=== PATIENT | male | born 1980 | race Caucasian/White ===

== ENCOUNTER → 2016-10-19 | Outpatient (CLI) | payer OTHER ==
--- NOTE | 2016-10-19 12:08 | XR ---
Abdomen HISTORY: Left sided kidney stone Single frontal view of the abdomen correlated to prior dated 10 April 2016 Punctate calcification superimposed over the lower pole of the right kidney is again noted. Superimpo sed bowel gas may obscure detail. Vascular and prostate calcifications present within the pelvis. No bowel obstruction or pneumoperitoneum. Lung bases are not included on the exam. IMPRESSION: Right-sided nephrolithiasis, 3 mm calcification is again noted.
== END ==
LOC: RADXRMAIN 08:38
PROVIDERS: ATTEND Urology
DX: N20.0 Calculus of kidney (principal)
CPT/HCPCS: 74000

== ENCOUNTER 2020-07-19 10:46 | Emergency (ER) | payer OTHER ==
[2020-07-19 10:53] VITALS: RESP 18
[2020-07-19] MEDS ORDERED: SODIUM CHLORIDE 0.9% 1,000 ML IV STA ×2 (11:01)
[2020-07-19] MEDS ORDERED: MORPHINE SULFATE 4 MG/ML SYRINGE IV STA (11:01)
[2020-07-19] MEDS ORDERED: ONDANSETRON 4 MG/2 ML VIAL IVP STA (11:01)
--- NOTE | 2020-07-19 11:12 | ED ---
Abdominal Pain HPI - General Chief Complaint: Abdominal Pain Stated Complaint: Diverticulitis Time Seen by Provider: 07/19/20 10:56 Source: patient Mode of arrival: ambulatory Limitations: no limitations - History of Present Illness Initial Comments: 40-year-old male presenting today for chief complaint of LLQ pain, blood in stools, nausea. Pt states he has struggled with diverticulitis for quite some times now, he states the symptoms he has been experiencing this AM. Patient states he also has internal hemorrhoids and he states after a few loose stools the last one having blood in it. Patient denies fevers, vomiting, chest pain SOB. Denies history of chrons, or history of ulcerative colitis. Lady lightheaded sensation or additional complaints. pt appears well nontoxic in no acute distress. - Related Data Home Medications Medication Instructions Recorded Confirmed Calcium Carbonate [Calcium] 600 mg PO BID 07/19/20 07/19/20 Inulin/Chromium Picolinate [Fiber 1 tab PO DAILY 07/19/20 07/19/20 Gummies Chew] Multivitamins, Thera [Multivitamin 1 tab PO DAILY 07/19/20 07/19/20 (formulary)] Potassium Gluconate 99 mg PO DAILY 07/19/20 07/19/20 Previous Rx's Medication Instructions Recorded Amoxic-Pot Clav 875-125Mg 1 tab PO Q12HR 7 Days #14 tab 07/19/20 [Augmentin 875-125] Allergies Allergy/AdvReac Type Severity Reaction Status Date / Time No Known Allergies Allergy Verified 07/19/20 11:33 Review of Systems ROS Statement: Those systems with pertinent positive or pertinent negative responses have been documented in the HPI. ROS Other: All systems not noted in ROS Statement are negative. Past Medical History Additional Past Medical History / Comment(s): back pain, kidney stones, internal hemorrhoids History of Any Multi-Drug Resistant Organisms: MRSA Date of last positivie culture/infection: 2017 MDRO Source:: arm Additional Past Surgical History / Comment(s): lithrotripsy Past Psychological History: No Psychological Hx Reported Smoking Status: Never smoker Past Alcohol Use History: None Reported Past Drug Use History: Marijuana General Exam - General Exam Comments Initial Comments: General: The patient is awake and alert, in no distress Eye: Pupils are equal, round and reactive to light, extra-ocular movements are intact. No nystagmus. There is normal conjunctiva bilaterally. No signs of icterus. Cardiovascular: There is a regular rate and rhythm. No murmur, rub or gallop is appreciated. Respiratory: Lungs are clear to auscultation, respirations are non-labored, breath sounds are equal. No wheezes, stridor, rales, or rhonchi. Gastrointestinal: Soft, non-distended, LLQ tenderness no appreciated hernia/emy tral defects on inspection, abdomen without masses or organomegaly noted. There is no rebound or guarding present. Musculoskeletal: Normal ROM, no tenderness. Strength 5/5. Sensation intact. Radial pulses equal bilaterally 2+. Neurological: A&O x 3. CN II-XII intact grossly, There are no obvious motor or sensory deficits. Coordination appears grossly intact. Speech is normal. Skin: Skin is warm and dry and no rashes or lesions are noted. Psychiatric: Cooperative, appropriate mood & affect, normal judgment. Limitations: no limitations Course Vital Signs 07/19/20 10:51 Temperature 98.7 F Pulse Rate 82 Respiratory 18 Rate Blood Pressure 146/90 O2 Sat by Pulse 100 Oximetry Medical Decision Making - Medical Decision Making 40yo male presenting to the Er today for cc of LLQ pain, hx of diverticulitis. Patient CT reveals colitis. pt states he has had no additional BM with stool. patient labs no critical findings. VS stable. appearse nontoxic. pt will be discharged on oral antibiotics with recommended GI or general surgery follow-up for colonoscopy. pcp f/u in 2 days discussed complications of reticulitis/colitis including perforation and the importance of return primary patient discharged appearing well. attending agreeable to care plan. and d/c - Lab Data Result diagrams: 07/19/20 11:21 07/19/20 11:21 Lab Results 07/19/20 07/19/20 07/19/20 Range/Units 11:21 11:21 11:21 WBC 7.8 (3.8-10.6) k/uL RBC 5.01 (4.30-5.90) m/uL Hgb 16.3 (13.0-17.5) gm/dL Hct 48.3 (39.0-53.0) % MCV 96.6 (80.0-100.0) fL MCH 32.5 (25.0-35.0) pg MCHC 33.6 (31.0-37.0) g/dL RDW 12.6 (11.5-15.5) % Plt Count 298 (150-450) k/uL MPV 8.0 Neutrophils % 78 % Lymphocytes % 16 % Monocytes % 3 % Eosinophils % 1 % Basophils % 0 % Neutrophils # 6.1 (1.3-7.7) k/uL Lymphocytes # 1.2 (1.0-4.8) k/uL Monocytes # 0.3 (0-1.0) k/uL Eosinophils # 0.1 (0-0.7) k/uL Basophils # 0.0 (0-0.2) k/uL Sodium 138 (137-145) mmol/L Potassium 4.6 (3.5-5.1) mmol/L Chloride 109 H (98-107) mmol/L Carbon Dioxide 21 L (22-30) mmol/L Anion Gap 8 mmol/L BUN 11 (9-20) mg/dL Creatinine 0.89 (0.66-1.25) mg/dL Est GFR (CKD-EPI)AfAm >90 (>60 ml/min/1.73 sqM) Est GFR (CKD-EPI)NonAf >90 (>60 ml/min/1.73 sqM) Glucose 138 H (74-99) mg/dL Calcium 9.9 (8.4-10.2) mg/dL Total Bilirubin 0.5 (0.2-1.3) mg/dL AST 33 (17-59) U/L ALT 36 (4-49) U/L Alkaline Phosphatase 75 (38-126) U/L Total Protein 8.0 (6.3-8.2) g/dL Albumin 4.8 (3.5-5.0) g/dL Amylase 67 (30-110) U/L Lipase 217 (23-300) U/L Urine Color Light Yellow Urine Appearance Clear (Clear) Urine pH 6.5 (5.0-8.0) Ur Specific [place] 1.014 (1.001-1.035) Urine Protein Trace H (Negative) Urine Glucose (UA) Negative (Negative) Urine Ketones Negative (Negative) Urine Blood Small H (Negative) Urine Nitrite Negative (Negative) Urine Bilirubin Negative (Negative) Urine Urobilinogen <2.0 (<2.0) mg/dL Ur Leukocyte Esterase Small H (Negative) Urine RBC 10 H (0-5) /hpf Urine WBC 3 (0-5) /hpf Urine Mucus Rare H (None) /hpf Disposition Clinical Impression: Colitis, Blood in stool, Abdominal pain Disposition: HOME SELF-CARE Condition: Good Instructions (If sedation given, give patient instructions): Diverticulitis (ED), Colitis (ED) Additional Instructions: Please use medication as discussed. Please follow-up with family doctor in the next 2 day and gastroenterology or general surgery for a colonoscopy. Please return to emergency room if the symptoms increase or worsen or for any other concerns. Prescriptions: Amoxic-Pot Clav 875-125Mg [Augmentin 875-125] 1 tab PO Q12HR 7 Days #14 tab Is patient prescribed a controlled substance at d/c from ED?: No Referrals: Nelly Ford DO [Primary Care Provider] - 1-2 days Loc Green MD [STAFF PHYSICIAN] - 1-2 days Time of Disposition: 12:46
[2020-07-19] MEDS ORDERED: PIPERACILLIN-TAZOBACTAM 3.375 GM in SODIUM CHLORIDE 0.9% 100 ML IVPB STA (11:17)
[2020-07-19 11:48] LABS: Basophils % (A) 0 %; Eosinophils # (A) 0.1 k/uL (0-0.7); Eosinophils % (A) 1 %; HCT 48.3 % (39.0-53.0); HGB 16.3 gm/dL (13.0-17.5); Lymphocytes # (A) 1.2 k/uL (1.0-4.8); Lymphocytes % (A) 16 %; MCH 32.5 pg (25.0-35.0); MCHC 33.6 g/dL (31.0-37.0); MCV 96.6 fL (80.0-100.0); Monocytes # (A) 0.3 k/uL (0-1.0); Monocytes % (A) 3 %; Neutrophils # (A) 6.1 k/uL (1.3-7.7); Neutrophils % (A) 78 %; Platelet Count 298 k/uL (150-450); RBC 5.01 m/uL (4.30-5.90); RDW 12.6 % (11.5-15.5); WBC 7.8 k/uL (3.8-10.6)
[2020-07-19 11:50] LABS: Appearance,Urine Clear (Clear); Bilirubin,Urine Negative (Negative); Blood,Urine Small (Negative); Color,Urine Light Yellow; Glucose,Urine (UA) Negative (Negative); Ketones,Urine Negative (Negative); Leukocyte Esterase,Urine Small (Negative); Mucus,Urine Rare /hpf; Nitrite,Urine Negative (Negative); PH, Urine 6.5 (5.0-8.0); Protein,Urine Trace (Negative); RBC,Urine 10 /hpf (0-5); Specific Gravity,Urine 1.014 (1.001-1.035); Urobilinogen,Urine <2.0 mg/dL (<2.0); WBC,Urine 3 /hpf (0-5)
[2020-07-19 11:54] LABS: ALT 36 U/L (4-49); AST 33 U/L (17-59); African American GFR (CKD) >90 (>60 ml/min/1.73 sqM); Albumin 4.8 g/dL (3.5-5.0); Alkaline Phosphatase 75 U/L (38-126); Amylase 67 U/L (30-110); Anion Gap 8 mmol/L; Blood Urea Nitrogen 11 mg/dL (9-20); Calcium 9.9 mg/dL (8.4-10.2); Carbon Dioxide 21 mmol/L (22-30); Chloride 109 mmol/L (98-107); Glucose 138 mg/dL (74-99); Lipase 217 U/L (23-300); Non-African American GFR(CKD) >90 (>60 ml/min/1.73 sqM); Potassium 4.6 mmol/L (3.5-5.1); Sodium 138 mmol/L (137-145); Total Bilirubin 0.5 mg/dL (0.2-1.3)
--- NOTE | 2020-07-19 12:39 | CT ---
EXAMINATION TYPE: CT abdomen pelvis w con DATE OF EXAM: 07/19/2020 COMPARISON: 09/17/2015 HISTORY: LLQ pain CT DLP: 1112.8 mGycm CONTRAST: CT scan of the abdomen and pelvis is performed without Oral Contrast and with IV Contrast, patient in jected with 100 mL of Isovue 300. FINDINGS: LUNG BASES-: No visible nodule. No infiltrate. LIVER/GB: No calcified gallstones. No space occupying hepatic lesion. Biliary tree is of normal ca liber. PANCREAS: No inflammation. No distinct mass. SPLEEN: No splenic enlargement. No lesion seen. ADRENALS: No nodule. No thickening. KIDNEYS/BLADDER: No hydronephrosis. No nephrolithiasis. No distinct renal mass. Urinary bladder g rossly unremarkable. BOWEL: Normal appendix. Normal bowel caliber. Scattered diverticulosis descending colon and sigmoid colon. No definite evidence for diverticulitis. There is wall thickening of the descending colon whic h may reflect colitis. Correlate clinically. No free air or abscess seen. GENITAL ORGANS: No gross abnormality. LYMPH NODES: No greater than 1cm abdominal or pelvic lymph nodes are appreciated. AORTA: No significant abnormality. OSSEOUS STRUCTURES: No significant abnormality is seen. OTHER: No significant additional abnormality is seen. IMPRESSION: 1. No definite evidence for diverticulitis. There is wall thickening of the descending colon which ma y reflect colitis. Correlate clinically. No free air or abscess seen.
[2020-07-19 13:05] VITALS: BP 144/97; PULSE 65; TEMP 98.2
== END 2020-07-19 13:04 | disposition home or self-care (01) ==
LOC: EC 10:46
DX: K52.9 Noninfective gastroenteritis and colitis, unspecified (principal); Z87.19 Personal history of other diseases of the digestive system; Z87.442 Personal history of urinary calculi; Z98.890 Other specified postprocedural states; Z86.14 Personal history of Methicillin resistant Staphylococcus aureus infection
CPT/HCPCS: 96365; 96375 ×2; 99284; 36415; 80053; 82150; 83690; 85025; 81001; 74177; J2543; J2270; J2405; Q9967

== ENCOUNTER 2020-12-29 13:19 | Emergency (ER) | payer OTHER ==
[2020-12-29 13:24] VITALS: TEMP 98
[2020-12-29] MEDS ORDERED: OFLOXACIN 0.3% OPHTH DROPS 5 ML BOTTLE LEFT EYE STA (13:34)
[2020-12-29] MEDS ORDERED: PROPARACAINE 0.5% OPHTH DROPS 15 ML BTL LEFT EYE STA (13:34)
[2020-12-29] MEDS ORDERED: FLUORESCEIN STRIPS 1 MG STRIP LEFT EYE STA (13:35)
--- NOTE | 2020-12-29 14:39 | ED ---
General Adult HPI - General Chief complaint: Eye Problems Stated complaint: Dog scratch on eye Time Seen by Provider: 12/29/20 13:34 Source: patient, RN notes reviewed Mode of arrival: ambulatory Limitations: no limitations - History of Present Illness Initial comments: 80-year-old male presents to the emergency room for a chief complaint of right eye pain. Patient states early this morning he was sleeping and his dog scratched his eye. Patient states that he now has irritation to the right eye. States he waited to see if it would go away but it is not. Patient does wear contacts, does not currently have them in. He is up-to-date on tetanus. Patient denies visual changes but states he is legally blind without his contacts.Patient has no other complaints at this time including shortness of breath, chest pain, abdominal pain, nausea or vomiting, headache, or visual changes. - Related Data Home Medications Medication Instructions Recorded Confirmed Calcium Carbonate [Calcium] 600 mg PO BID 07/19/20 07/19/20 Inulin/Chromium Picolinate [Fiber 1 tab PO DAILY 07/19/20 07/19/20 Gummies Chew] Multivitamins, Thera [Multivitamin 1 tab PO DAILY 07/19/20 07/19/20 (formulary)] Potassium Gluconate 99 mg PO DAILY 07/19/20 07/19/20 Previous Rx's Medication Instructions Recorded Amoxic-Pot Clav 875-125Mg 1 tab PO Q12HR 7 Days #14 tab 07/19/20 [Augmentin 875-125] Ofloxacin 0.3% Ophth Soln [Ocuflox 2 drops BOTH EYES QID 7 Days #2 ml 12/29/20 Ophth Soln] Allergies Allergy/AdvReac Type Severity Reaction Status Date / Time No Known Allergies Allergy Verified 12/29/20 13:24 Review of Systems ROS Statement: Those systems with pertinent positive or pertinent negative responses have been documented in the HPI. ROS Other: All systems not noted in ROS Statement are negative. Past Medical History Additional Past Medical History / Comment(s): back pain, kidney stones, internal hemorrhoids History of Any Multi-Drug Resistant Organisms: MRSA Date of last positivie culture/infection: 2016 MDRO Source:: arm Additional Past Surgical History / Comment(s): lithrotripsy Past Psychological History: No Psychological Hx Reported Smoking Status: Never smoker Past Alcohol Use History: None Reported Past Drug Use History: Marijuana General Exam Limitations: no limitations General appearance: alert, in no apparent distress Head exam: Present: atraumatic, normocephalic, normal inspection Eye exam: Present: PERRL, EOMI, conjunctival injection (Right-sided conjunctival injection.). Absent: scleral icterus, periorbital swelling ENT exam: Present: normal exam, mucous membranes moist Neck exam: Present: normal inspection, full ROM. Absent: tenderness, meningismus, lymphadenopathy Respiratory exam: Present: normal lung sounds bilaterally. Absent: respiratory distress, wheezes, rales, rhonchi, stridor Cardiovascular Exam: Present: regular rate, normal rhythm, normal heart sounds Course Vital Signs 12/29/20 13:20 Temperature 98.0 F Pulse Rate 68 Respiratory 17 Rate Blood Pressure 143/86 O2 Sat by Pulse 98 Oximetry Medical Decision Making - Medical Decision Making Patient presents after dog scratched his right eye causing pain. The eye was numbed with proparacaine which did completely alleviate his pain. It was then visualized with 4 seen and Wood's lamp which did reveal a small corneal abrasion noted on the center of the cornea. Patient was treated with ofloxacin drops given history of contact use. He will follow up with ophthalmology. He will return here to the emergency room for any worsening symptoms. Disposition Clinical Impression: Corneal abrasion, right Disposition: HOME SELF-CARE Condition: Good Instructions (If sedation given, give patient instructions): Corneal Abrasion (ED) Additional Instructions: Please use antibiotics as directed. Do not wear contacts for several days. Follow up with ophthalmology. Return to the emergency room for any worsening symptoms. Prescriptions: Ofloxacin 0.3% Ophth Soln [Ocuflox Ophth Soln] 2 drops BOTH EYES QID 7 Days #2 ml Is patient prescribed a controlled substance at d/c from ED?: No Referrals: Nelly Ford DO [Primary Care Provider] - 1-2 days Ector Gordon MD [STAFF PHYSICIAN] - 1-2 days Time of Disposition: 14:35
[2020-12-29 14:55] VITALS: RESP 18
[2020-12-29 14:57] VITALS: BP 138/89; PULSE 65
== END 2020-12-29 15:05 | disposition home or self-care (01) ==
LOC: EC 13:19
DX: S05.01XA Injury of conjunctiva and corneal abrasion without foreign body, right eye, initial encounter (principal); F12.90 Cannabis use, unspecified, uncomplicated; Z87.442 Personal history of urinary calculi; Z87.19 Personal history of other diseases of the digestive system; W54.8XXA Other contact with dog, initial encounter
CPT/HCPCS: 99283

== ENCOUNTER 2021-09-07 10:47 | Emergency (ER) | payer OTHER ==
[2021-09-07 11:14] VITALS: RESP 18; TEMP 97.8
[2021-09-07] MEDS ORDERED: diphenhydrAMINE 50 MG/ML 1 ML VIAL IVP STA (11:17)
[2021-09-07] MEDS ORDERED: MORPHINE SULFATE 4 MG/ML SYRINGE IV STA (11:17)
[2021-09-07] MEDS ORDERED: ONDANSETRON 4 MG/2 ML VIAL IVP STA (11:17)
[2021-09-07] MEDS ORDERED: SODIUM CHLORIDE 0.9% 1,000 ML IV STA ×2 (11:17→12:15)
[2021-09-07] MEDS ORDERED: FAMOTIDINE 20 MG/2 ML VIAL IV STA (11:25)
[2021-09-07 11:42] LABS: Basophils % (A) 0 %; Eosinophils # (A) 0.1 k/uL (0-0.7); Eosinophils % (A) 1 %; HCT 46.2 % (39.0-53.0); HGB 15.9 gm/dL (13.0-17.5); Lymphocytes # (A) 1.1 k/uL (1.0-4.8); Lymphocytes % (A) 9 %; MCH 33.7 pg (25.0-35.0); MCHC 34.5 g/dL (31.0-37.0); MCV 97.6 fL (80.0-100.0); Mean Platelet Volume 7.8; Monocytes # (A) 0.4 k/uL (0-1.0); Monocytes % (A) 3 %; Neutrophils # (A) 10.9 k/uL (1.3-7.7); Neutrophils % (A) 86 %; Platelet Count 274 k/uL (150-450); RBC 4.73 m/uL (4.30-5.90); RDW 12.7 % (11.5-15.5); WBC 12.7 k/uL (3.8-10.6)
[2021-09-07 11:51] LABS: INR 1.1 (<1.2); Partial Thromboplastin Time 27.5 sec (22.0-30.0); Prothrombin Time 11.2 sec (9.0-12.0)
[2021-09-07 11:53] LABS: ALT 30 U/L (4-49); AST 29 U/L (17-59); African American GFR (CKD) >90 (>60 ml/min/1.73 sqM); Albumin 4.7 g/dL (3.5-5.0); Alkaline Phosphatase 87 U/L (38-126); Amylase 76 U/L (30-110); Anion Gap 8 mmol/L; Blood Urea Nitrogen 13 mg/dL (9-20); Calcium 9.9 mg/dL (8.4-10.2); Carbon Dioxide 24 mmol/L (22-30); Chloride 106 mmol/L (98-107); Glucose 145 mg/dL (74-99); Lipase 237 U/L (23-300); Non-African American GFR(CKD) 83 (>60 ml/min/1.73 sqM); Sodium 138 mmol/L (137-145); Total Bilirubin 0.8 mg/dL (0.2-1.3)
--- NOTE | 2021-09-07 12:06 | CT ---
EXAMINATION TYPE: CT abdomen pelvis w con DATE OF EXAM: 09/07/2021 COMPARISON: 07/19/2020 HISTORY: Left lower abdominal pain, suspect diverticulitis CT DLP: 1027 mGycm Automated exposure control for dose reduction was used. CONTRAST: CT scan of the abdomen pelvis is performed with IV Contrast, patient injected with 100 mL of Isovue 3 00. FINDINGS- LUNG BASES- No significant abnormality is appreciated. LIVER/GB-there is a enhancing hepatic dome lesion retrospectively stable from prior exam which demons trates complete fill in on delayed imaging and measures approximately 2.3 cm compatible with hemangio ma. Smaller right lobe hemangioma measuring 1 cm axial image 2017 also suspected.. PANCREAS- No gross abnormality is seen. SPLEEN- No gross abnormality is seen. ADRENALS- No gross abnormality is seen. KIDNEYS/BLADDER-punctate 2 mm nonobstructing right renal calculus.. BOWEL-bowel gas pattern nonspecific with changes of diverticulosis. There is mild induration of the f at involving the distal left: Correlate for mild diverticulitis. Appendix normal. LYMPH NODES- No greater than 1cm abdominal or pelvic lymph nodes areappreciated. OSSEOUS STRUCTURES-severe degenerative disc disease L5-S1. OTHER- aorta of normal caliber. Small fat-containing periumbilical hernia. IMPRESSION- 1. Extensive diverticulosis correlate for mild uncomplicated distal left colonic diverticulitis. 2. Nonobstructing punctate 1 to 2 mm calculus. 3. Hepatic lesions most of thecal hemangioma
[2021-09-07 12:24] LABS: Amorphous Sediment,Urine Rare /hpf; Appearance,Urine Cloudy (Clear); Bilirubin,Urine Negative (Negative); Blood,Urine Negative (Negative); Color,Urine Light Yellow; Glucose,Urine (UA) Negative (Negative); Ketones,Urine 1+ (Negative); Leukocyte Esterase,Urine Negative (Negative); Nitrite,Urine Negative (Negative); Protein,Urine Trace (Negative); RBC,Urine 4 /hpf (0-5); Urobilinogen,Urine <2.0 mg/dL (<2.0)
[2021-09-07 12:29] LABS: Specific Gravity,Urine 1.049 (1.001-1.035)
[2021-09-07] MEDS ORDERED: AMOXIC-POT CLAV 875-125MG 1 EACH TAB PO STA (12:47)
--- NOTE | 2021-09-07 12:50 | ED ---
General Adult HPI - General Chief complaint: Abdominal Pain Stated complaint: abd pain Time Seen by Provider: 09/07/21 11:15 Source: patient, RN notes reviewed, old records reviewed Mode of arrival: ambulatory Limitations: no limitations - History of Present Illness Initial comments: Patient is a 41-year-old male with past medical history remarkable for diverticulitis, diverticulosis, kidney stones who presents emergency department complaining of acute onset of left lower quadrant abdominal pain. Patient states that the abdominal pain started this morning when he awoke. Describes as a sharp, aching sensation isolated to the left lower quadrant. There is no acute vomiting. Denies diarrhea. Denies any chest pain, shortness of breath. Denies any urinary complaints but does endorse a history of kidney stones. Has no other acute complaint at this time. Presents emergency department over concern for his abdominal pain. Recently had a colonoscopy and hemorrhoids removed, was diagnosed with diverticulosis. - Related Data Home Medications Medication Instructions Recorded Confirmed Calcium Carbonate [Calcium] 600 mg PO BID 07/19/20 07/19/20 Inulin/Chromium Picolinate [Fiber 1 tab PO DAILY 07/19/20 07/19/20 Gummies Chew] Multivitamins, Thera [Multivitamin 1 tab PO DAILY 07/19/20 07/19/20 (formulary)] Potassium Gluconate [Potassium 99 mg PO DAILY 07/19/20 07/19/20 Gluconate ER] Previous Rx's Medication Instructions Recorded Amoxic-Pot Clav 875-125Mg 1 tab PO Q12HR 7 Days #14 tab 07/19/20 [Augmentin 875-125] Ofloxacin 0.3% Ophth Soln [Ocuflox 2 drops BOTH EYES QID 7 Days #2 ml 12/29/20 Ophth Soln] Amoxicillin/Potassium Clav 1 tab PO Q12HR 7 Days #14 tab 09/07/21 [Augmentin 875-125 Tablet] Docusate [Colace] 100 mg PO DAILY PRN 10 Days #10 09/07/21 capsule Allergies Allergy/AdvReac Type Severity Reaction Status Date / Time No Known Allergies Allergy Verified 09/07/21 11:14 Review of Systems ROS Statement: Those systems with pertinent positive or pertinent negative responses have been documented in the HPI. Review of Systems: CONST: Denies fever EYES: Denies blurry vision ENT: Denies nasal congestion C/V: Denies Chest pain RESP: Denies shortness of breath GI: Endorses abdominal pain. : Denies dysuria SKIN: Denies rash. MSK: Denies joint pain. NEURO: Denies headache ROS Other: All systems not noted in ROS Statement are negative. Past Medical History Additional Past Medical History / Comment(s): back pain, kidney stones, internal hemorrhoids History of Any Multi-Drug Resistant Organisms: MRSA Date of last positivie culture/infection: 2016 MDRO Source:: arm Additional Past Surgical History / Comment(s): lithrotripsy Past Psychological History: No Psychological Hx Reported Smoking Status: Former smoker Past Alcohol Use History: None Reported Past Drug Use History: Marijuana General Exam - General Exam Comments Initial Comments: General: Appears in mild distress secondary to abdominal pain. HEAD: Normal with no signs of head trauma. EYES: PERRLA, EOMI, conjunctiva normal, no discharge. ENT: Hearing grossly intact, normal oropharynx. RESPIRATORY: Clear breath sounds bilaterally. No wheezes, rales, or rhonchi. C/V: Regular rate and rhythm. S1 and S2 auscultated, no edema, peripheral pulses 2+ and intact throughout ABD: Abdomen is soft , nondistended. He is mildly tender to palpation left lower quadrant. There is no guarding. No peritoneal signs. No rebound tenderness. No CVA tenderness to percussion. EXT: Normal range of motion, no obvious deformity SKIN: No rashes or lesions observed on exposed skin. NEURO: Alert and oriented 4. Limitations: no limitations Course Vital Signs 09/07/21 11:10 Temperature 97.8 F Pulse Rate 71 Respiratory 18 Rate Blood Pressure 167/97 O2 Sat by Pulse 100 Oximetry Medical Decision Making - Medical Decision Making Based on the patient's presentation and physical exam, I'm concerned for acute intra-abdominal process for the patient, primarily concerned for kidney stones versus diverticulitis. He has a history of both. He will be given analgesia, 1 L fluid bolus, antiemetics and 1 L fluid bolus. We will obtain abdominal laboratory studies as well as CT and pelvis with contrast as well as a ultrasound to evaluate for hydronephrosis and kidney stones. Patient was in agreement this plan. Patient's left wrist studies are remarkable for lactic acid 2.8 which is likely secondary to dehydration. He will receive fluid bolus as well as here. Remainder the labs are unremarkable except for mild leukocytosis of 12.7. Urinalysis is unremarkable. CT imaging revealed extensive diverticulosis with mild uncomplicated left colonic diverticulitis. There is also a hemangioma. No other findings on CT imaging. There are small nonobstructing punctate 1-2 mm calculus. Ultrasound revealed no signs of acute hydronephrosis, but there is a small right nephrolithiasis.. I discussed the findings with the patient. He is feeling improved, and states that his pain is nearly resolved. He is no longer nauseous. I believe it is safe for him to be discharged home with antibiotics. He has uncomplicated diverticulitis. He was in agreement this plan. I will provide the patient with a prescription for stool softeners, Augmentin twice a day for 10 days. I instructed the patient to follow up with their PCP in the next 3 days. . I explained that the patient should return to the emergency department if they experience any worsening symptoms. Strict return precautions were discussed with the patient. The patient expressed understanding of these instructions. I answered all questions that the patient had. The patient was discharged home in fair condition with their prescriptions and follow up information. - Lab Data Result diagrams: 09/07/21 11:30 09/07/21 11:30 Lab Results 09/07/21 09/07/21 09/07/21 Range/Units 11:30 11:30 11:30 WBC 12.7 H (3.8-10.6) k/uL RBC 4.73 (4.30-5.90) m/uL Hgb 15.9 (13.0-17.5) gm/dL Hct 46.2 (39.0-53.0) % MCV 97.6 (80.0-100.0) fL MCH 33.7 (25.0-35.0) pg MCHC 34.5 (31.0-37.0) g/dL RDW 12.7 (11.5-15.5) % Plt Count 274 (150-450) k/uL MPV 7.8 Neutrophils % 86 % Lymphocytes % 9 % Monocytes % 3 % Eosinophils % 1 % Basophils % 0 % Neutrophils # 10.9 H (1.3-7.7) k/uL Lymphocytes # 1.1 (1.0-4.8) k/uL Monocytes # 0.4 (0-1.0) k/uL Eosinophils # 0.1 (0-0.7) k/uL Basophils # 0.0 (0-0.2) k/uL PT (9.0-12.0) sec INR (<1.2) APTT (22.0-30.0) sec Sodium 138 (137-145) mmol/L Potassium 4.0 (3.5-5.1) mmol/L Chloride 106 (98-107) mmol/L Carbon Dioxide 24 (22-30) mmol/L Anion Gap 8 mmol/L BUN 13 (9-20) mg/dL Creatinine 1.09 (0.66-1.25) mg/dL Est GFR (CKD-EPI)AfAm >90 (>60 ml/min/1.73 sqM) Est GFR (CKD-EPI)NonAf 83 (>60 ml/min/1.73 sqM) Glucose 145 H (74-99) mg/dL Plasma Lactic Acid Yang 2.8 H* (0.7-2.0) mmol/L Calcium 9.9 (8.4-10.2) mg/dL Total Bilirubin 0.8 (0.2-1.3) mg/dL AST 29 (17-59) U/L ALT 30 (4-49) U/L Alkaline Phosphatase 87 (38-126) U/L Total Protein 8.0 (6.3-8.2) g/dL Albumin 4.7 (3.5-5.0) g/dL Amylase 76 (30-110) U/L Lipase 237 (23-300) U/L Urine Color Urine Appearance (Clear) Urine pH (5.0-8.0) Ur Specific [place] (1.001-1.035) Urine Protein (Negative) Urine Glucose (UA) (Negative) Urine Ketones (Negative) Urine Blood (Negative) Urine Nitrite (Negative) Urine Bilirubin (Negative) Urine Urobilinogen (<2.0) mg/dL Ur Leukocyte Esterase (Negative) Urine RBC (0-5) /hpf Amorphous Sediment (None) /hpf 09/07/21 09/07/21 Range/Units 11:30 12:00 WBC (3.8-10.6) k/uL RBC (4.30-5.90) m/uL Hgb (13.0-17.5) gm/dL Hct (39.0-53.0) % MCV (80.0-100.0) fL MCH (25.0-35.0) pg MCHC (31.0-37.0) g/dL RDW (11.5-15.5) % Plt Count (150-450) k/uL MPV Neutrophils % % Lymphocytes % % Monocytes % % Eosinophils % % Basophils % % Neutrophils # (1.3-7.7) k/uL Lymphocytes # (1.0-4.8) k/uL Monocytes # (0-1.0) k/uL Eosinophils # (0-0.7) k/uL Basophils # (0-0.2) k/uL PT 11.2 (9.0-12.0) sec INR 1.1 (<1.2) APTT 27.5 (22.0-30.0) sec Sodium (137-145) mmol/L Potassium (3.5-5.1) mmol/L Chloride (98-107) mmol/L Carbon Dioxide (22-30) mmol/L Anion Gap mmol/L BUN (9-20) mg/dL Creatinine (0.66-1.25) mg/dL Est GFR (CKD-EPI)AfAm (>60 ml/min/1.73 sqM) Est GFR (CKD-EPI)NonAf (>60 ml/min/1.73 sqM) Glucose (74-99) mg/dL Plasma Lactic Acid Yang (0.7-2.0) mmol/L Calcium (8.4-10.2) mg/dL Total Bilirubin (0.2-1.3) mg/dL AST (17-59) U/L ALT (4-49) U/L Alkaline Phosphatase (38-126) U/L Total Protein (6.3-8.2) g/dL Albumin (3.5-5.0) g/dL Amylase (30-110) U/L Lipase (23-300) U/L Urine Color Light Yellow Urine Appearance Cloudy (Clear) Urine pH 8.0 (5.0-8.0) Ur Specific [place] 1.049 H (1.001-1.035) Urine Protein Trace H (Negative) Urine Glucose (UA) Negative (Negative) Urine Ketones 1+ H (Negative) Urine Blood Negative (Negative) Urine Nitrite Negative (Negative) Urine Bilirubin Negative (Negative) Urine Urobilinogen <2.0 (<2.0) mg/dL Ur Leukocyte Esterase Negative (Negative) Urine RBC 4 (0-5) /hpf Amorphous Sediment Rare H (None) /hpf Disposition Clinical Impression: Diverticulitis, Abdominal pain, Dehydration Disposition: HOME SELF-CARE Condition: Fair Instructions (If sedation given, give patient instructions): Diverticulitis ( ED) Prescriptions: Amoxicillin/Potassium Clav [Augmentin 875-125 Tablet] 1 tab PO Q12HR 7 Days #14 tab Docusate [Colace] 100 mg PO DAILY PRN 10 Days #10 capsule PRN Reason: Constipation Is patient prescribed a controlled substance at d/c from ED?: No Referrals: Nelly Ford DO [Primary Care Provider] - 1-2 days
--- NOTE | 2021-09-07 13:47 | US ---
EXAMINATION TYPE: US kidneys/renal and bladder DATE OF EXAM: 09/07/2021 COMPARISON: CT 2021, US 2015 CLINICAL HISTORY: history of kidney stones, eval for hydronephrosis. abdomen pain EXAM MEASUREMENTS: Right Kidney: 10.5 x 5.5 x 5.2 cm Left Kidney: 10.1 x 4.9 x 4.6 cm Right Kidney: 2 echogenic foci inferior pole with largest measuring 0.4cm Left Kidney: wnl Bladder: wnl Bilateral Jets seen: yes IMPRESSION: 1. Nonobstructing right renal calculi.
[2021-09-07 13:52] VITALS: BP 143/88; PULSE 83
== END 2021-09-07 13:51 | disposition home or self-care (01) ==
LOC: EC 10:47
DX: K57.32 Diverticulitis of large intestine without perforation or abscess without bleeding (principal); E86.0 Dehydration; Z87.891 Personal history of nicotine dependence
CPT/HCPCS: 36415; 80053; 82150; 83605; 83690; 85025; 85610; 85730; 81001; 76770; 74177; 99284; 96374; 96375; J2270; J1200; J2405; Q9967